=== PATIENT | female | born 1985 | race American Indian/Alaskan Native ===

== ENCOUNTER 2018-07-29 22:13 | Emergency (ER) | payer SELFPAY ==
[2018-07-29 22:48] LABS: Bilirubin,Urine NEG (Negative); Blood,Urine NEG (Negative); Color,Urine Yellow (Yellow); Mucus,Urine FEW /HPF; Protein,Urine <15 mg/dL mg/dL (Negative); Urobilinogen,Urine < 2.0 mg/dL (<2.0)
[2018-07-29 23:04] LABS: Basophils # (Auto) 0.1 K/mm3 (0.0-0.1); Basophils % (Auto) 1.2 % (0.0-1.8); Eosinophils % (Auto) 0.6 % (0.0-4.3); Hemoglobin 12.7 gm/dl (10.1-14.3); Lymphocytes # (Auto) 1.6 K/mm3 (1.2-5.4); Lymphocytes % (Auto) 24.7 % (13.4-35.0); Mean Corpuscular HGB Conc 34 % (30-34); Mean Corpuscular Volume 89 fl (79-97); Monocytes # (Auto) 0.5 K/mm3 (0.0-0.8); Monocytes % (Auto) 7.8 % (0.0-7.3); Platelet Count 210 K/mm3 (140-440); Red Blood Count 4.15 M/mm3 (3.65-5.03); Red Cell Distribution Width 13.3 % (13.2-15.2)
[2018-07-29 23:22] LABS: Alanine Aminotransferase 24 units/L (7-56); Albumin 4.1 g/dL (3.9-5); BUN/Creatinine Ratio 22; Blood Urea Nitrogen 11 mg/dL (7-17); Calcium 9.3 mg/dL (8.4-10.2); Hemolysis Index 25
--- NOTE | 2018-07-30 00:59 | Emergency Department Report ---
ED Female HPI - General Chief complaint: Abdominal Pain Stated complaint: STOMACH UPSET/TIREDNESS Time Seen by Provider: 07/30/18 00:31 Source: patient Mode of arrival: Ambulatory Limitations: No Limitations - History of Present Illness Initial comments: 33-year-old female comes in complaining of pelvic pain that is dull and intermittent worse when she is hungry nothing makes it better. Patient reports that is intermittent and often would just go away. She spent dealing with pelvic pain for one week and fatigue for 2-3 weeks. Patient denies any nausea vomiting or diarrhea. Patient denies any vaginal bleeding or vaginal discharge. Patient reports her last menstrual period was 06/05/2018. Patient is 4 para 3 she's had no complications in her previous pregnancies. Patient has no past medical history currently takes no medications on a daily basis and has no known drug allergies. MD Complaint: pelvic pain -: week(s) (1 wk for pelvic discomfort, 2-3 weeks for fatigue) Location: LLQ Radiation: non-radiating Severity: mild Severity scale (0 -10): 1 Quality: dull Consistency: intermittent Improves with: none Worsens with: other (eating) Are you Now?: No Last Menstrual Period: 06/05/18 EDC: 03/12/19 Associated Symptoms: denies: vaginal discharge, vaginal bleeding, abdominal pain, nausea/vomiting, fever/chills - Related Data Sexually active: Yes : 4 Para: 3 Previous Rx's Medication Instructions Recorded Last Taken Type Vits96/Iron Fum/Folic 1 each PO QDAY #90 tablet 07/30/18 Unknown Rx [ Tablet] Allergies Allergy/AdvReac Type Severity Reaction Status Date / Time No Known Allergies Allergy Unverified 07/29/18 22:17 ED Review of Systems ROS: Stated complaint: STOMACH UPSET/TIREDNESS Other details as noted in HPI Comment: All other systems reviewed and negative Gastrointestinal: abdominal pain ED Past Medical Hx - Past Medical History Previous Medical History?: No - Surgical History Past Surgical History?: No - Social History Smoking Status: Never Smoker Substance Use Type: None - Medications Home Medications: Home Medications Medication Instructions Recorded Confirmed Last Taken Type Vits96/Iron Fum/Folic 1 each PO QDAY #90 tablet 07/30/18 Unknown Rx [ Tablet] ED Physical Exam - General Limitations: No Limitations General appearance: alert, in no apparent distress - Head Head exam: Present: atraumatic, normocephalic - Eye Eye exam: Present: normal appearance - ENT ENT exam: Present: mucous membranes moist - Neck Neck exam: Present: normal inspection - Respiratory Respiratory exam: Present: normal lung sounds bilaterally. Absent: respiratory distress - Cardiovascular Cardiovascular Exam: Present: regular rate, normal rhythm. Absent: systolic murmur, diastolic murmur, rubs, gallop - GI/Abdominal GI/Abdominal exam: Present: soft, normal bowel sounds. Absent: distended, tenderness, guarding, rebound - Extremities Exam Extremities exam: Present: normal inspection, full ROM - Back Exam Back exam: Present: normal inspection, full ROM - Neurological Exam Neurological exam: Present: alert, oriented X3 - Psychiatric Psychiatric exam: Present: normal affect, normal mood - Skin Skin exam: Present: warm, dry, intact, normal color. Absent: rash ED Course Vital Signs 07/29/18 07/30/18 22:30 02:29 Temperature 98.4 F 98.4 F Pulse Rate 75 64 Respiratory 18 18 Rate Blood Pressure 131/82 Blood Pressure 119/77 [Left] O2 Sat by Pulse 100 99 Oximetry ED Medical Decision Making - Lab Data Result diagrams: 07/29/18 22:48 07/29/18 22:48 - Radiology Data Radiology results: report reviewed Patient: SLAVA HOUSTON MR#: [id number] : 1985 Acct:[id number] Age/Sex: 33 / F ADM Date: 07/29/18 Loc: ED Attending Dr: Ordering Physician: ISRAEL LASSITER Date of Service: 07/30/18 Procedure(s): US OB <= 14 weeks fetus Accession Number(s): [id number] cc: ISRAEL LASSITER FINAL REPORT PROCEDURE: US OB lt; = 14 WEEKS FETUS TECHNIQUE: Real-time transabdominal sonography of the uterus, placenta, amniotic fluid, adnexa, and fetus was performed with image documentation. Measurements were obtained to determine age/size. M-mode Doppler was used to document heartbeat. CPT 98762 HISTORY: positive with pelvic pain COMPARISON: No prior studies are available for comparison. FINDINGS: CRL: 21.3 mm, which corresponds to a gestational age of: 8 weeks, 5 days. Yolk Sac: Normal. Embryonic Cardiac Activity: 166 beats per minute Gestational Sac: Normal. Amniotic fluid: Normal. Cervix: Normal. Right Ovary: Normal. Left Ovary: Normal. Estimated delivery date: 03/06/2019 Uterus and adnexa: There is uterine fibroid measuring 3 centimeters. There is a 16 millimeter right ovarian cyst. IMPRESSION: Single live intrauterine gestation at approximately 8 weeks and 5 days. EDC by US 03/06/2019 There is uterine fibroid measuring 3 centimeters. There is a 16 millimeter right ovarian cyst. Transcribed By: CO Dictated By: RONALD GASCA MD Electronically Authenticated By: RONALD GASCA MD Signed Date/Time: 07/30/18231 DD/ 9 TD/TT: 07/30/18229 - Medical Decision Making Patient has been evaluated by this provider in fast track. Lab and ultrasound has been completed. Patient has an intrauterine or gestation about 8 weeks and 5 days. Patient is to follow-up with OB and I will list several below for her [facility] Critical care attestation.: If time is entered above; I have spent that time in minutes in the direct care of this critically ill patient, excluding procedure time. ED Disposition Clinical Impression: Pelvic pain Qualifiers: Weeks of gestation: less than 8 weeks Qualified Code(s): Z3A.01 - Less than 8 weeks gestation of Disposition: DC-01 TO HOME OR SELFCARE Is pt being admited?: No Does the pt Need Aspirin: No Condition: Stable Instructions: Abdominal Pain (ED) Additional Instructions: Please take vitamins as prescribed. 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 At this point he can only take Tylenol for pain. Prescriptions: Vits96/Iron Fum/Folic [ Tablet] 1 each PO QDAY #90 tablet Referrals: [facility] [Provider Group] - 3-5 Days [facility] [Provider Group] - 3-5 Days [facility] [Provider Group] - 3-5 Days Forms: Work/School Release Form(ED), Accompanied Note
[2018-07-30 02:30] VITALS: BP 119/77
--- NOTE | 2018-07-30 02:32 | Ultrasound Report ---
FINAL REPORT PROCEDURE: US OB < = 14 WEEKS FETUS TECHNIQUE: Real-time transabdominal sonography of the uterus, placenta, amniotic fluid, adnexa, and fetus was performed with image documentation. Measurements were obtained to determine age/size. M-mode Doppler was used to document heartbeat. CPT 32735 HISTORY: positive with pelvic pain COMPARISON: No prior studies are available for comparison. FINDINGS: CRL: 21.3 mm, which corresponds to a gestational age of: 8 weeks, 5 days. Yolk Sac: Normal. Embryonic Cardiac Activity: 166 beats per minute Gestational Sac: Normal. Amniotic fluid: Normal. Cervix: Normal. Right Ovary: Normal. Left Ovary: Normal. Estimated delivery date: 03/06/2019 Uterus and adnexa: There is uterine fibroid measuring 3 centimeters. There is a 16 millimeter right o varian cyst. IMPRESSION: Single live intrauterine gestation at approximately 8 weeks and 5 days. EDC by US 03/06/2019 There is uterine fibroid measuring 3 centimeters. There is a 16 millimeter right ovarian cyst.
== END 2018-07-30 02:57 | disposition home or self-care (01) ==
LOC: ED 22:13
DX: O26.891 Other specified pregnancy related conditions, first trimester (principal); R10.2 Pelvic and perineal pain; Z3A.01 Less than 8 weeks gestation of pregnancy
CPT/HCPCS: 36415; 76801; 80053; 81001; 84702; 84703; 85025